=== PATIENT | female | born 1985 ===

== ENCOUNTER 2018-09-22 14:08 | Outpatient (CLI) | payer OTHER | END 2018-09-22 14:21 | disposition home or self-care (01) | LOC: LAB 14:08 | DX: Z34.81 Encounter for supervision of other normal pregnancy, first trimester (principal) ==

== ENCOUNTER 2018-09-23 06:15 | Day surgery (SDC) | payer OTHER | END 2018-09-23 13:55 | disposition home or self-care (01) | LOC: CIR.AMB 06:15 | DX: O02.1 Missed abortion (principal); Z3A.01 Less than 8 weeks gestation of pregnancy ==

== ENCOUNTER 2019-08-17 09:20 | Outpatient (CLI) | payer OTHER | END 2019-08-17 11:23 | disposition home or self-care (01) | LOC: NST 09:20 | DX: Z34.83 Encounter for supervision of other normal pregnancy, third trimester (principal) ==

== ENCOUNTER 2019-08-24 09:50 | Inpatient (IN) | payer OTHER ==
[~2019-08-24] VITALS: Ht 149.9 cm; Wt 70.8 kg
[2019-08-25] MEDS ORDERED: PRENATAL TABLE1 EACH (10:34)
== END 2019-08-27 14:37 | disposition home or self-care (01) | DRG 807 ==
LOC: OB/GYN 09:50 → LDR 08-25 06:55 → OB/GYN 08-25 16:57
PROVIDERS: ADMIT Obstetrics & Gynecology
PROC: 10E0XZZ Delivery of Products of Conception, External Approach (ICD-10-PCS; principal; 2019-08-25)
PROC: 0KQM0ZZ Repair Perineum Muscle, Open Approach (ICD-10-PCS; 2019-08-25)
PROC: 3E033VJ Introduction of Other Hormone into Peripheral Vein, Percutaneous Approach (ICD-10-PCS; 2019-08-25)
PROC: 4A1HXFZ Monitoring of Products of Conception, Cardiac Rhythm, External Approach (ICD-10-PCS; 2019-08-25)
PROC: 0W8NXZZ Division of Female Perineum, External Approach (ICD-10-PCS; 2019-08-25)
DX: O70.1 Second degree perineal laceration during delivery (principal); Z37.0 Single live birth; Z3A.40 40 weeks gestation of pregnancy